=== PATIENT | female | born 1980 | race Caucasian/White ===

== ENCOUNTER 2016-11-21 19:35 | Emergency (ER) | payer OTHER ==
[~2016-11-21] VITALS: Ht 165.1 cm; Wt 63.5 kg
[2016-11-21 19:44] VITALS: BP 115/76
--- NOTE | 2016-11-21 19:53 | NUR ---
PATIENT PRESENTS TO ED WITH SOSA X 4 DAYS, PT STATES SHE WENT TO URGENT CARE AND WAS TOLD TO GO TO ER, PT DENIES HAVING HX OF HTN ONLY MEDICAL HX IS GASTRITIS AND TAKES PEPCID FOR TX . PT DENIES N/V/D; SKIN IS PINK/WARM/DRY; AAOX4 WITH EVEN AND STEADY GAIT; LUNGS CLEAR BL; HR EVEN AND REGULAR; PT DENIES ANY FEVER, CP, SOB, OR COUGH AT THIS TIME; PATIENT STATES PAIN OF 8/10 AT THIS TIME; VSS; PATIENT POSITIONED FOR COMFORT; HOB ELEVATED; BEDRAILS UP X2; BED DOWN. ER MD MADE AWARE OF PT STATUS.
--- NOTE | 2016-11-21 19:53 | NUR ---
Patient ambulated to bed 07.
--- NOTE | 2016-11-21 20:07 | NUR ---
Dr. Rouse evaluating patient at bedside.
[2016-11-21] MEDS ORDERED: KETOROLAC 60 MG/2 ML VIAL IM ONE (20:15)
[2016-11-21] MEDS ORDERED: METOCLOPRAMIDE 10 MG/2 ML INJ VIAL IM ONE (20:15)
[2016-11-21 20:51] VITALS: BP 110/72
--- NOTE | 2016-11-21 20:51 | NUR ---
Patient discharged with v/s stable. Written and verbal after care instructions given and explained. Patient alert, oriented and verbalized understanding of instructions. Ambulatory with steady gait. All questions addressed prior to discharge. ID band removed. Patient advised to follow up with PMD. Rx of REGLAN 10MG AND NAPROSYN 375MG given. Patient educated on indication of medication including possible reaction and side effects. Opportunity to ask questions provided and answered.
== END 2016-11-21 20:51 | disposition home or self-care (01) ==
LOC: MED 19:35
PROC: 3E033GC Introduction of Other Therapeutic Substance into Peripheral Vein, Percutaneous Approach (ICD-10-PCS; principal; 2016-11-21)
DX: G43.909 Migraine, unspecified, not intractable, without status migrainosus (principal); Z88.0 Allergy status to penicillin
CPT/HCPCS: 96372; 99284; J1885; J2765

== ENCOUNTER 2020-01-02 22:18 | Emergency (ER) | payer OTHER ==
[~2020-01-02] VITALS: Ht 167.6 cm; Wt 68.9 kg
[2020-01-02 22:30] VITALS: BP 118/55
--- NOTE | 2020-01-02 22:48 | NUR ---
PT TAKEN TO BED 1
--- NOTE | 2020-01-02 23:03 | NUR ---
39 YEAR OLD FEMALE COMPLAINS OF SHORTNESS OF BREATHE X 1 MONTH. PER PT SHE WOULD HAVE ON/OFF SHORTNESS OF BREATHE, AND IS CONCERNED BECAUSE HER INHALER ONLY HAS BEEN RELIEVING SYMPTOMS TEMPORARILY WHEN SHE DOES HAVE SHORTNESS OF BREATHE. PT AOX4, BREATHING EVEN AND UNLABORED, LUNGS CLEAR BILATERAL, SKIN WARM AND DRY. PT PLACED ON MONITOR, SPOW 99%, RR 18. BED IN LOWEST POSITION, LOCKED, BED RAIL UPX1. ERMD MADE AWARE. PMH - ASTHMA ALLERGIES - PCN
--- NOTE | 2020-01-02 23:40 | NUR ---
Dr. Wilson examining patient.
--- NOTE | 2020-01-03 00:08 | NUR ---
COVERING PRIMARY RN FOR LUNCH RELIEF -- IV ESTABLISHED TO L AC. PT TOLERATED WELL. BLOOD DRAWN FROM IV START. URINE COLLECTED. ATTATCHED TO CONTINOUS CARDAIC MOINTORING. VSS.
[2020-01-03 00:16] LABS: BASOPHILS # (AUTO) 0.1 K/uL (0.00-0.22); EOSINOPHILS # (AUTO) 0.6 K/uL (0-0.4); MONOCYTES # (AUTO) 0.4 K/uL (0.8-1.0); NEUTROPHILS # (AUTO) 3.6 K/uL (1.8-7.7)
[2020-01-03 00:22] LABS: EOSINOPHILS % (AUTO) 9.2 % (0.0-4.0); LYMPHOCYTES # (AUTO) 1.8 K/uL (2.5-16.5); LYMPHOCYTES % (AUTO) 27.7 % (20.5-51.1); MEAN CORPUSCULAR HEMOGLOBIN 17 pg (27-31); MEAN CORPUSCULAR HGB CONC 30 g/dL (33-37); MEAN CORPUSCULAR VOLUME 56.7 fL (80-94); MONOCYTES % (AUTO) 6.2 % (1.7-9.3); NEUTROPHILS % (AUTO) 55.9 % (42.2-75.2); PLATELET COUNT (AUTO) 323 K/uL (140-450); RED BLOOD CELL COUNT(AUTO) 4.24 MIL/uL (4.20-5.40); RED CELL DISTRIBUTION WIDTH 18.7 % (11.6-13.7); WHITE BLOOD COUNT (AUTO) 6.4 K/uL (4.8-10.8)
[2020-01-03 00:29] LABS: HEMOGLOBIN 7.2 g/dL (12.0-16.0)
[2020-01-03 00:30] LABS: ALBUMIN 3.9 g/dL (3.4-5.0); ANION GAP 16.2 (8-16); CREATININE 0.7 mg/dL (0.6-1.3); POTASSIUM 3.2 mmol/L (3.5-5.1); TOTAL BILIRUBIN 0.4 mg/dL (0.0-1.0)
[2020-01-03 00:34] LABS: PROTHROMBIN TIME 9.9 secs (10.8-13.4)
--- NOTE | 2020-01-03 01:00 | NUR ---
PATIENT ALERT AND AWAKE, BREATHING EVEN AND UNLABORED
--- NOTE | 2020-01-03 01:55 | NUR ---
Consent signed per patient agreeing to administration of blood. Blood has been type and crossmatched. Blood sent from blood bank. Information on unit of blood checked against patient wristband at bedside by two nurses. All information matches. Patient or responsible green party informed of potential complications associated with blood transfusion. Informed of possible transfusion reaction symptoms. Aware of need to notify nurse at once of itching, shortness of breath, flushing, feeling of impending doom, or other symptoms not previously present. Vital signs taken within 5 minutes prior to initiation of transfusion. RN will remain with patient for first 15 minutes of transfusion at which time vital signs will be re-assessed.
--- NOTE | 2020-01-03 02:10 | NUR ---
PATIENT DENIES ANY CHANGE IN SYMPTOMS SUCH PAIN OR ITCHING, BLOOD TRANSFUSION SET TO 125ML/HR.
[2020-01-03] MEDS ORDERED: POTASSIUM CHLORIDE 10 MEQ TABER PO ONE (02:50)
--- NOTE | 2020-01-03 03:10 | NUR ---
PATIENT ALERT AND AWAKE, BREATHING EVEN AND UNLABORED, BLOOD CONTINUES TO TRANSFUSE AT 125ML/HR.
--- NOTE | 2020-01-03 04:06 | NUR ---
PATIENT ALERT AND AWAKE, BREAHTING EVEN AND UNLABORED. BLOOD CONTINUES TO TRANSFUSE AT 125ML/HR, PT CONTINUES TO DENY ANY ADVERSE SYMPTOMS
--- NOTE | 2020-01-03 04:30 | NUR ---
BLOOD TRANSFUSION COMPLETE, PATIENT AOX4, BREATHING EVEN AND UNLABORED. PT DENIES ANY ADVERSE REACTION. ERMD MADE AWARE
[2020-01-03 05:00] VITALS: BP 108/59
--- NOTE | 2020-01-03 05:00 | NUR ---
Patient discharged with v/s stable. Written and verbal after care instructions about anemia, blood transfusion information, iron deficiency anemia, and shortness of breathe given and explained. Patient alert, oriented and verbalized understanding of instructions. Ambulatory with steady gait. All questions addressed prior to discharge. ID band removed. Patient advised to follow up with PMD. Rx of ferrous sulfate given. Patient educated on indication of medication including possible reaction and side effects. Opportunity to ask questions provided and answered.
== END 2020-01-03 05:00 | disposition home or self-care (01) ==
LOC: MED 22:18
DX: D50.9 Iron deficiency anemia, unspecified (principal); E87.6 Hypokalemia; J45.909 Unspecified asthma, uncomplicated; R06.09 Other forms of dyspnea; R53.1 Weakness
CPT/HCPCS: 36415; 71045; 80053; 82550; 83540; 83880; 84484; 85025; 85379; 85610; 85730; 86886; 86900; 86901; 86920; 99284; P9016; Q0092; 93005; 99282

== ENCOUNTER 2022-04-20 22:37 | Emergency (ER) | payer OTHER ==
[~2022-04-20] VITALS: Ht 165.1 cm; Wt 65.8 kg
[2022-04-20 22:43] VITALS: BP 120/64
[2022-04-20] MEDS ORDERED: LORazepam 1 MG TAB PO ONE (23:15)
--- NOTE | 2022-04-20 23:17 | NUR ---
Dr. Castanon examining patient.
--- NOTE | 2022-04-21 00:35 | NUR ---
PT TAKEN TO BED 4
[2022-04-21 00:56] VITALS: BP 108/75
--- NOTE | 2022-04-21 01:03 | NUR ---
Patient discharged with v/s stable. Written and verbal after care instructions given and explained. Patient verbalized understanding. Ambulatory with steady gait. All questions addressed prior to discharge. Advised to follow up with PMD.
== END 2022-04-21 01:03 | disposition home or self-care (01) ==
LOC: MED 22:37
DX: F41.0 Panic disorder [episodic paroxysmal anxiety] (principal); J45.909 Unspecified asthma, uncomplicated; D64.9 Anemia, unspecified; Z88.0 Allergy status to penicillin
CPT/HCPCS: 81025; 99283

== ENCOUNTER 2022-09-16 10:28 | Emergency (ER) | payer OTHER ==
[~2022-09-16] VITALS: Ht 165.1 cm; Wt 65.8 kg
[2022-09-16 10:30] VITALS: BP 149/92
--- NOTE | 2022-09-16 10:51 | NUR ---
42/F WALKED IN C/O VAGINAL BLEED X 2WKS ACCOMPANIED BY DIZZINESS AND WEAKNESS. DENIES NVD. AFEBRILE. DENIES ANY PELVIC PAIN AT THIS TIME. AAO4, AMBULATORY, VITALS STABLE. PMH: ANEMIA
--- NOTE | 2022-09-16 10:58 | NUR ---
BLOOD DRAWN BY ASSIGNMENT OFFICER
--- NOTE | 2022-09-16 11:05 | NUR ---
US AT BEDSIDE
[2022-09-16 11:36] LABS: ALBUMIN 4.3 g/dL (3.4-5.0); ANION GAP 12.6 (8-16); ASPARTATE AMINOTRANSFERASE 5 U/L (15-37); CARBON DIOXIDE 25.4 mmol/L (21-32); CHLORIDE 107 mmol/L (98-107); CREATININE 0.5 mg/dL (0.6-1.3); GFR ARICAN-AMERICAN 173 mL/min (>90); GLUCOSE 88 mg/dL (74-106); SODIUM SERUM 141 mmol/L (136-145); TOTAL BILIRUBIN 0.8 mg/dL (0.0-1.0); UREA NITROGEN, BLOOD 9 mg/dL (7-18)
[2022-09-16 11:40] LABS: BASOPHILS % (AUTO) 1.2 % (0.0-2.0); EOSINOPHILS # (AUTO) 0.2 K/uL (0-0.4); HEMATOCRIT 20.5 % (36-48); LYMPHOCYTES # (AUTO) 1.1 K/uL (2.5-16.5); LYMPHOCYTES % (AUTO) 27.2 % (20.5-51.1); MEAN CORPUSCULAR HEMOGLOBIN 15 pg (27-31); MEAN CORPUSCULAR HGB CONC 28 g/dL (33-37); MEAN CORPUSCULAR VOLUME 53.5 fL (80-94); MONOCYTES # (AUTO) 0.3 K/uL (0.8-1.0); MONOCYTES % (AUTO) 6.6 % (1.7-9.3); NEUTROPHILS # (AUTO) 2.5 K/uL (1.8-7.7); PLATELET COUNT (AUTO) 254 K/uL (140-450); RED BLOOD CELL COUNT(AUTO) 3.82 MIL/uL (4.20-5.40); RED CELL DISTRIBUTION WIDTH 19.9 % (11.6-13.7); WHITE BLOOD COUNT (AUTO) 4.1 K/uL (4.8-10.8)
[2022-09-16 11:47] LABS: HEMOGLOBIN 5.8 g/dL (12.0-16.0)
--- NOTE | 2022-09-16 12:35 | NUR ---
PELVIC EXAM PERFORMED BY DR LIZARRAGA ACCOMPANIED BY RODRIGUEZ PA.
[2022-09-16] MEDS ORDERED: MEDR10TA PO (12:59)
--- NOTE | 2022-09-16 13:34 | NUR ---
CALLED BLOOD BANK FOR BLOOD ORDER. PER BLOOD BANK, ORDER DID NOT GET PROCESSED ON THEIR END. BLOOD ORDER WAS PLACED ON 1224. PER BLOOD BANK, BLOOD WILL BE READY IN [address] LIZARRAGA MADE AWARE
--- NOTE | 2022-09-16 14:50 | NUR ---
1435 BLOOD TRANSFUSION INITIATED, VSS 1450 NO REACTION OBSERVED POST 15 MIN. VSS
--- NOTE | 2022-09-16 16:30 | NUR ---
BLOOD TRANSFUSION COMPLETED FOR THE FIRST UNIT OF BLOOD. NO REACTION OBSERVED. PATIENT TOLERATED WELL.
--- NOTE | 2022-09-16 16:40 | NUR ---
SECOND UNIT OF BLOOD TRANSFUSION INITIATED.
--- NOTE | 2022-09-16 16:55 | NUR ---
15 MIN POST TRANSFUSION, NO REACTION OBSERVED
[2022-09-16 18:20] VITALS: BP 101/53
== END 2022-09-16 18:20 | disposition home or self-care (01) ==
LOC: MED 10:28
DX: N93.8 Other specified abnormal uterine and vaginal bleeding (principal); D64.9 Anemia, unspecified; Z88.0 Allergy status to penicillin; Z79.899 Other long term (current) drug therapy; Z98.890 Other specified postprocedural states
CPT/HCPCS: 36415; 36430; 76856; 80053; 81025; 84484; 85025; 86886; 86900; 86901; 86920; 93976; 99284; P9016; Q0092

== ENCOUNTER 2023-08-27 17:27 | Emergency (ER) | payer OTHER ==
[~2023-08-27] VITALS: Ht 165.1 cm; Wt 66.7 kg
[~2023-08-27 17:27] MED LIST: MEDR10TA PO
[2023-08-27 17:35] VITALS: BP 123/68; PULSE 81; RESP 20; TEMP 98.5; O2SAT 100
[2023-08-27] MEDS ORDERED: ACETAMINOPHEN EXTRA STRENGTH 500 MG TAB PO ONE (18:05)
[2023-08-27] MEDS ORDERED: NAPR-54 PO (19:09)
[2023-08-27] MEDS ORDERED: LID5T TP (19:09)
== END 2023-08-27 19:25 | disposition home or self-care (01) ==
LOC: MED 17:27
DX: S93.692A Other sprain of left foot, initial encounter (principal); W18.30XA Fall on same level, unspecified, initial encounter; Y93.89 Activity, other specified; Y92.89 Other specified places as the place of occurrence of the external cause; Y99.8 Other external cause status
CPT/HCPCS: 73610; 73630; 99284

== ENCOUNTER 2024-02-12 15:39 | Emergency (ER) | payer OTHER ==
[~2024-02-12] VITALS: Ht 165.1 cm; Wt 61.2 kg
[~2024-02-12 15:39] MED LIST changes: +LID5T TP; +NAPR-337 PO
[2024-02-12 16:01] VITALS: BP 110/44; PULSE 66; RESP 18; TEMP 97; O2SAT 100
[2024-02-12 16:27] LABS: BASOPHILS # (AUTO) 0.1 K/uL (0.00-0.22); BASOPHILS % (AUTO) 1.5 % (0.0-2.0); EOSINOPHILS # (AUTO) 0.3 K/uL (0-0.4); EOSINOPHILS % (AUTO) 7.8 % (0.0-4.0); LYMPHOCYTES # (AUTO) 0.9 K/uL (2.5-16.5); LYMPHOCYTES % (AUTO) 22.7 % (20.5-51.1); MEAN CORPUSCULAR HEMOGLOBIN 14 pg (27-31); MEAN CORPUSCULAR VOLUME 51.5 fL (80-94); MONOCYTES # (AUTO) 0.3 K/uL (0.8-1.0); MONOCYTES % (AUTO) 6.8 % (1.7-9.3); NEUTROPHILS # (AUTO) 2.3 K/uL (1.8-7.7); NEUTROPHILS % (AUTO) 61.2 % (42.2-75.2); PLATELET COUNT (AUTO) 252 K/uL (140-450); RED BLOOD CELL COUNT(AUTO) 3.56 MIL/uL (4.20-5.40); WHITE BLOOD COUNT (AUTO) 3.8 K/uL (4.8-10.8)
[2024-02-12 16:35] LABS: ANION GAP 14.1 (8-16); CARBON DIOXIDE 24.7 mmol/L (21-32); CREATININE 0.5 mg/dL (0.6-1.3); POTASSIUM 3.8 mmol/L (3.5-5.1)
[2024-02-12 16:39] LABS: INR 1.05 (0.8-1.2)
[2024-02-12 16:43] LABS: ALBUMIN 3.8 g/dL (3.4-5.0); BILIRUBIN,DIRECT 0.1 mg/dL (0.0-0.3); TOTAL BILIRUBIN 0.5 mg/dL (0.0-1.0); TOTAL PROTEIN, SERUM 7.1 g/dL (6.4-8.2)
[2024-02-12 17:37] LABS: HEMOGLOBIN 5.1 g/dL (12.0-16.0)
[2024-02-12 17:38] LABS: HEMATOCRIT 18.3 % (36-48); MEAN CORPUSCULAR HGB CONC 28 g/dL (33-37)
[2024-02-12 17:39] LABS: RED CELL DISTRIBUTION WIDTH 20.9 % (11.6-13.7)
[2024-02-12] MEDS ORDERED: DOCU-299 PO (18:03)
[2024-02-12] MEDS ORDERED: FERR-147 PO (18:03)
[2024-02-12 22:24] VITALS: BP 129/53; PULSE 51; RESP 16; TEMP 98.2; O2SAT 100
== END 2024-02-12 22:26 | disposition home or self-care (01) ==
LOC: MED 15:39
DX: D50.9 Iron deficiency anemia, unspecified (principal); I25.10 Atherosclerotic heart disease of native coronary artery without angina pectoris; Z88.0 Allergy status to penicillin; Z79.899 Other long term (current) drug therapy
CPT/HCPCS: 36415; 36430; 80048; 80076; 85025; 85610; 85730; 86886; 86900; 86901; 86920; 99291; P9016